=== PATIENT | female | born 1980 | race Caucasian/White ===

== ENCOUNTER → 2018-03-29 | Day surgery (SDC) | payer OTHER ==
--- NOTE | 2018-03-30 14:48 | PATH ---
Surgical Pathology Report Patient Name: PIOTR ALVAREZ [facility]. Rec. #: [id number] /Age/Gender: 1980 (Age: 38) / F Account: [id number] Location: [facility] Taken: 03/29/2018 Received: 03/29/2018 Reported: 03/30/2018 Physicians: Neel Cintron Specimen(s) Received RIGHT BREAST 9:00 CORE BX Clinical History Nonpalpable lesion Ultrasound findings: Probably benign Final Diagnosis BREAST, RIGHT, 9:00, US-GUIDED CORE BIOPSY: PREDOMINANTLY BLOOD WITH SCANT BENIGN BREAST TISSUE SHOWING STROMAL FIBROSIS. Electronically Signed Ivanna Matthew M.D. Gross Description Received in formalin labeled "right 9:00," are 2 hermosillo-yellow, cylindrical portions of fibroadipose tissue, admixed with blood clot measuring 0.3 and 0.8 cm in length and averaging 0.1 cm in diameter. The specimens are submitted in toto in one cassette. Total formalin fixation time: Approximately 6 hours /03/29/2018/03/29/2018
== END | disposition home or self-care (01) ==
LOC: JRADUS-SUR 10:44
PROVIDERS: ATTEND Nurse Practitioner Family
PROC: 0HBT3ZX Excision of Right Breast, Percutaneous Approach, Diagnostic (ICD-10-PCS; principal; 2018-03-29)
DX: N60.31 Fibrosclerosis of right breast (principal); N63.10 Unspecified lump in the right breast, unspecified quadrant
CPT/HCPCS: 19083; 87899; 88305-TC; A4648

== ENCOUNTER 2024-12-05 05:28 | Inpatient (IN) | payer OTHER ==
[2024-12-02 10:17] VITALS: BMI 29.2
[2024-12-05] MEDS ORDERED: PROPOFOL 40 ML ONE (07:47)
[2024-12-05] MEDS ORDERED: ROCURONIUM BROMIDE 50 MG/5 ML SYRINGE ONE (07:47)
[2024-12-05] MEDS ORDERED: MIDAZOLAM HCL 2 MG/2 ML SINGLE DOSE VIAL ONE (07:47)
[2024-12-05] MEDS: ceFAZolin SODIUM 1 GM VIAL IVPB ONE (08:25)
[2024-12-05] MEDS ORDERED: oxyCODONE HCL 5 MG TABLET PO PRN (10:27)
[2024-12-05] MEDS ORDERED: IBUPROFEN 800 MG/8 ML IJ IVPB PRN ×2 (10:27→10:32)
[2024-12-05] MEDS ORDERED: NALOXONE HCL 0.4 MG/ML VIAL IVPUSH PRN (10:29)
[2024-12-05] MEDS ORDERED: ONDANSETRON 4 MG/2 ML VIAL IVPUSH PRN (10:29)
[2024-12-05] MEDS: morphine SULFATE/PF 1 MG/2 ML (2cc Syringe - QUVA) IT ONE (11:05)
[2024-12-05] MEDS: ACETAMINOPHEN 1000 MG/100 ML BAG IVPB PRN (11:13)
[2024-12-05] MEDS: LACTATED RINGERS SOLUTION 1,000 ML IV SCH (11:50)
[2024-12-05] MEDS: ONDANSETRON 4 MG/2 ML VIAL IVPUSH PRN (13:19)
[2024-12-06 08:34] LABS: BASO % 0.4 % (0-2.0); HEMOGLOBIN 7.6 GM/dL (10.7-15.3); LYMPH % 11.1 % (8-40); MCHC 31.6 g/dl (32.0-36.0); MEAN CELL VOLUME 62.8 fl (80-96); MEAN PLT VOLUME 7.8 fl (7.5-11.1); MONO % 7.3 % (3.8-10.2); NEUT % 81.2 % (42.8-82.8); PLATELET COUNT 414 10^3/uL (134-434); RBC 3.82 M/mm3 (3.60-5.2); RDW 20.8 % (11.6-15.6); WHITE BLOOD COUNT 11.6 K/mm3 (4.0-10.0)
[2024-12-06 08:36] LABS: MCH 19.9 pg (25.7-33.7)
[2024-12-06] MEDS: ENOXAPARIN NA (PORCINE) 40 MG/0.4 ML DISP.SYRIN SQ SCH (10:50)
[2024-12-06 11:50] LABS: ANISOCYTOSIS 2+; MACROCYTOSIS 0; TARGET CELLS 2+
[2024-12-06] MEDS: ACETAMINOPHEN 325 MG TABLET (FP) PO PRN (13:19)
[2024-12-08 10:34] VITALS: BP 124/85; PULSE 95; RESP 18; TEMP 98.4
== END 2024-12-08 12:40 | disposition home or self-care (01) | DRG 743 ==
LOC: J2C 05:28 → J3W 13:46
PROVIDERS: ADMIT Obstetrics & Gynecology Obstetrics; ATTEND Obstetrics & Gynecology Obstetrics
PROC: 0UT70ZZ Resection of Bilateral Fallopian Tubes, Open Approach (ICD-10-PCS; 2024-12-05)
PROC: 0UB10ZZ Excision of Left Ovary, Open Approach (ICD-10-PCS; 2024-12-05)
PROC: 0UT90ZZ Resection of Uterus, Open Approach (ICD-10-PCS; principal; 2024-12-05 08:00)
DX: D25.9 Leiomyoma of uterus, unspecified (principal); N92.0 Excessive and frequent menstruation with regular cycle; N94.6 Dysmenorrhea, unspecified; N83.202 Unspecified ovarian cyst, left side; D64.9 Anemia, unspecified; N83.201 Unspecified ovarian cyst, right side
CPT/HCPCS: 36415; 81025; 85025; 86850; 86900; 86901; 86922; 88305-TC; 88307-TC; 94010; 94760; J0131

== ENCOUNTER 2024-12-16 19:47 | Inpatient (IN) | payer OTHER ==
[2024-12-16] MEDS ORDERED: ACETAMINOPHEN 325 MG TABLET (FP) ONE (20:19)
[2024-12-16] MEDS: ACETAMINOPHEN 325 MG TABLET (FP) PO ONE (20:33)
[2024-12-16 20:42] LABS: ABSOLUTE IMMATURE GRANULOCYTES 0.03 x10^3/uL (0.0-0.031); BASOPHILS # 0.03 x10^3/uL (0.01-0.08); EOSINOPHIL % 0.5 % (0.7-5.8); EOSINOPHILS # 0.06 x10^3/uL (0.04-0.36); HEMATOCRIT 30.2 % (34.1-44.9); HEMOGLOBIN 9.4 g/dL (11.2-15.7); MCHC 31.1 g/dl (32.2-35.5); MEAN CELL VOLUME 66.8 fl (79.4-94.8); MEAN PLT VOLUME 9.6 fl (9.4-12.3); MONOCYTE # 0.94 x10^3/uL (0.24-0.86); MONOCYTE % 7.8 % (4.7-12.5); PLATELET COUNT # 406 x10^3/uL (182-369); RDW 23.9 % (12.2-17.1)
[2024-12-16 20:45] LABS: VENOUS BASE EXCESS 1.6 mmol/L (-2-2); VENOUS O2 SATURATION 57.6 % (70-80); VENOUS PCO2 39.9 mmHg (38-52); VENOUS PH 7.431 (7.310-7.410)
[2024-12-16 20:57] LABS: INR 1.1 (0.83-1.09)
[2024-12-16 20:58] LABS: CALCIUM 8.8 mg/dL (8.5-10.1)
[2024-12-16 20:59] LABS: ALBUMIN 3.4 g/dl (3.4-5.0); MAGNESIUM 2.3 mg/dL (1.8-2.4)
[2024-12-16 21:04] LABS: BILIRUBIN,TOTAL 0.1 mg/dL (0.2-1); TOT PROT 7.1 g/dl (6.4-8.2)
[2024-12-16 21:58] LABS: HIV INTERPRETATION NEGATIVE (NEGATIVE)
[2024-12-16 21:59] LABS: HCV DIAGNOSTIC IN-HOUSE W/RFLX NON-REACTIVE (NONREACTIVE)
[2024-12-16] MEDS ORDERED: ENOXAPARIN NA (PORCINE) 80 MG/0.8 ML DISP.SYRIN SQ ONE (22:17)
[2024-12-16] MEDS: ENOXAPARIN NA (PORCINE) 40 MG/0.4 ML DISP.SYRIN SQ ONE (22:22)
[2024-12-16] MEDS: ENOXAPARIN NA (PORCINE) 80 MG/0.8 ML DISP.SYRIN SQ SCH (23:36)
[2024-12-17 05:33] VITALS: BMI 31.4
[2024-12-17] MEDS: ACETAMINOPHEN 325 MG TABLET (FP) PO PRN (06:35)
[2024-12-17 09:05] LABS: HEMOGLOBIN 8.9 g/dL (11.2-15.7); MCHC 31.8 g/dl (32.2-35.5); PLATELET COUNT # 380 x10^3/uL (182-369); RDW 24.1 % (12.2-17.1)
[2024-12-17] MEDS: ENOXAPARIN NA (PORCINE) 80 MG/0.8 ML DISP.SYRIN SQ SCH (09:15)
[2024-12-17 09:16] LABS: INR 1.24 (0.83-1.09); PROTHROMBIN TIME (PATIENT) 13.6 SEC (9.7-13.0)
[2024-12-17 09:34] LABS: POTASSIUM 4.2 mmol/L (3.5-5.1)
[2024-12-17 10:20] LABS: BLOOD UREA NITROGEN 10.9 mg/dL (7-18); CALCIUM 8.7 mg/dL (8.5-10.1)
[2024-12-17 10:24] LABS: CREATININE 0.6 mg/dL (0.55-1.3)
[2024-12-17] MEDS: SODIUM CHLORIDE 1,000 ML IV SCH (12:42)
[2024-12-19] MEDS: morphine SULFATE 4 MG/ML VIAL IVPUSH ONE (02:42)
[2024-12-19 07:56] VITALS: PULSE 84
[2024-12-19] MEDS: APIXABAN 5 MG TABLET PO SCH (10:27)
[2024-12-19 13:23] VITALS: BP 148/89; RESP 18; TEMP 98.7
[2024-12-26] MEDS ORDERED: APIXABAN 5 MG TABLET PO SCH (10:00)
== END 2024-12-19 16:34 | disposition home or self-care (01) | DRG 205 ==
LOC: JER 19:47 → JERBED 23:00 → J4S 12-17 00:56
PROVIDERS: ADMIT Hospitalist; ATTEND Nurse Practitioner Acute Care
DX: J95.89 Other postprocedural complications and disorders of respiratory system, not elsewhere classified (principal); I26.99 Other pulmonary embolism without acute cor pulmonale; J98.11 Atelectasis; D21.9 Benign neoplasm of connective and other soft tissue, unspecified; D64.9 Anemia, unspecified; E66.9 Obesity, unspecified; Z68.30 Body mass index [BMI] 30.0-30.9, adult; Z90.710 Acquired absence of both cervix and uterus; Y83.8 Other surgical procedures as the cause of abnormal reaction of the patient, or of later complication, without mention of misadventure at the time of the procedure
CPT/HCPCS: 0241U-QW; 36415; 71045-TC-FY; 71275-TC; 80048; 80053; 82803; 83735; 84484; 84703; 85025; 85027; 85610; 85730; 86803; 86850; 86900; 86901; 87389; 93306-TC; 93970-TC; 94010; 99285-25; Q9967